=== PATIENT | female | born 1995 | race American Indian/Alaskan Native ===

== ENCOUNTER 2017-05-22 20:02 | Emergency (ER) | payer MEDICAID, OTHER ==
[2017-05-22 21:40] LABS: Basophils % (Auto) 0.5 % (0.0-1.8); Eosinophils % (Auto) 2.4 % (0.0-4.3); Hematocrit 39.6 % (30.3-42.9); Mean Corpuscular HGB Conc 33 % (30-34); Mean Corpuscular Hemoglobin 28 pg (28-32); Mean Corpuscular Volume 85 fl (79-97); Platelet Count 251 K/mm3 (140-440); Red Blood Count 4.64 M/mm3 (3.65-5.03); Red Cell Distribution Width 13.6 % (13.2-15.2)
[2017-05-22 22:13] LABS: Anion Gap 22 mmol/L; BUN/Creatinine Ratio 11.66; Blood Urea Nitrogen 7 mg/dL (7-17); Calcium 8.7 mg/dL (8.4-10.2); Carbon Dioxide 16 mmol/L (22-30); Chloride 103.5 mmol/L (98-107); Glucose 65 mg/dL (65-100); Sodium 137 mmol/L (137-145)
[2017-05-22 22:51] LABS: Bilirubin,Urine NEG (Negative); Blood,Urine MOD (Negative); Ketones,Urine NEG (Negative); Leukocyte Esterase,Urine NEG (Negative); Mucus,Urine 1+ /HPF; Nitrite,Urine NEG (Negative); Protein,Urine <15 mg/dL mg/dL (Negative); Urobilinogen,Urine < 2.0 mg/dL (<2.0)
--- NOTE | 2017-05-23 10:38 | XRay Report ---
ROUTINE CHEST, TWO VIEWS: HISTORY: chest pain. The trachea, heart, mediastinal contour, lung moreno and bony thorax are unremarkable. IMPRESSION: Unremarkable chest x-ray.
[2017-05-23 11:36] VITALS: BP 134/80
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
== END 2017-05-23 11:35 | disposition home or self-care (01) ==
LOC: ED 20:02
DX: K21.9 Gastro-esophageal reflux disease without esophagitis (principal); M54.5 Low back pain; G89.29 Other chronic pain
CPT/HCPCS: 36415; 71020; 80048; 81001; 82962; 84484; 84703; 85025; 93005; 93010

== ENCOUNTER 2017-12-17 16:36 | Emergency (ER) | payer SELFPAY ==
[2017-12-17 16:51] VITALS: BP 142/96
[2017-12-17 21:18] LABS: Basophils % (Auto) 0.3 % (0.0-1.8); Eosinophils # (Auto) 0.2 K/mm3 (0.0-0.4); Eosinophils % (Auto) 2.7 % (0.0-4.3); Hemoglobin 13.1 gm/dl (10.1-14.3); Lymphocytes # (Auto) 3.5 K/mm3 (1.2-5.4); Lymphocytes % (Auto) 46.1 % (13.4-35.0); Mean Corpuscular HGB Conc 32 % (30-34); Mean Corpuscular Hemoglobin 28 pg (28-32); Mean Corpuscular Volume 89 fl (79-97); Monocytes # (Auto) 0.5 K/mm3 (0.0-0.8); Monocytes % (Auto) 6.6 % (0.0-7.3); Platelet Count 249 K/mm3 (140-440); Red Blood Count 4.62 M/mm3 (3.65-5.03); Red Cell Distribution Width 13.9 % (13.2-15.2)
[2017-12-17] MEDS ORDERED: TYLENOL #3 PO ONE (21:23)
[2017-12-17 21:28] LABS: BUN/Creatinine Ratio 14; Blood Urea Nitrogen 7 mg/dL (7-17); Hemolysis Index 7
--- NOTE | 2017-12-17 21:30 | Emergency Department Report ---
HPI - General Chief Complaint: Weakness Time Seen by Provider: 12/17/17 21:00 - HPI HPI: The patient is a 22-year-old female presents for evaluation of headache. The patient reports headache and dizziness since 3 PM earlier today, approximately 6 hours prior to my evaluation. She states that her headache was insidious in onset, constant since onset, moderate in severity, pressure-like in quality, exacerbated with bright lights. Her dizziness and lightheadedness has been mild , exacerbated with position changes, and improved with sitting down and rest. She says that she has a history of episodes of dizziness and weakness at the being found to have low blood sugar. The patient denies fever, head injury, neck pain, neck stiffness, vision or hearing changes, smell or taste changes, paresthesias, facial drooping, slurred speech, seizure-like activity, urine or bowel incontinence or retention, or other focal neurological deficit. ED Past Medical Hx - Past Medical History Hx Diabetes: Yes (boarderline) - Social History Smoking Status: Never Smoker Substance Use Type: None - Medications Home Medications: Home Medications Medication Instructions Recorded Confirmed Last Taken Type Cyclobenzaprine HCl [Flexeril] 10 mg PO QHS #15 tablet 12/06/13 Unknown Rx HYDROcodone/ACETAMINOPHEN [[place] 1 each PO Q6HR #20 tablet 12/06/13 Unknown Rx 5/325 Tablet] Ibuprofen [Motrin] 600 mg PO Q8H PRN #60 tablet 12/06/13 Unknown Rx Ibuprofen [Motrin 600 MG tab] 600 mg PO Q8H PRN #20 tablet 05/23/17 Unknown Rx Butalb/Acetaminophen/Caffeine 1 - 2 cap PO Q6HR PRN #14 cap 12/17/17 Unknown Rx [Fioricet 50-300-40 mg CAP] ED Review of Systems ROS: Stated complaint: CHECK BLOOD SUGAR Other details as noted in HPI Constitutional: reports dizziness/lightheadedness denies: fever ENT: denies: throat or neck pain Respiratory: denies: cough, shortness of breath Cardiovascular: denies: chest pain Endocrine: denies unexplained weight loss or gain Gastrointestinal: denies: abdominal pain, nausea Genitourinary: denies: dysuria Musculoskeletal: denies: leg swelling Skin: denies: rash Neurological: reports headache Hematological/Lymphatic: denies: easy bleeding or easy bruising Psych: denies sadness or hopelessness Physical Exam - Physical Exam Vital Signs: Vital Signs 12/17/17 16:46 Temperature 98 F Pulse Rate 96 H Respiratory 18 Rate Blood Pressure 142/96 O2 Sat by Pulse 100 Oximetry Physical Exam: General: well-nourished, well-developed, no acute distress Head: Normocephalic, atraumatic Eyes: normal sclera ENT: Mucous membranes are pale and dry Neck: trachea midline, neck supple, No neck stiffness, no cervical adenopathy Respiratory: Breath sounds equal bilaterally, no wheezing, rales, or rhonchi Cardio: S1 and S2 present, no murmurs, rubs, gallops, capillary refill is delayed Abdomen: Normoactive bowel sounds, soft abdomen, no rigidity, no guarding or rebound tenderness Chest WALL/Back: No tenderness to palpation of the chest wall, no CVA tenderness with percussion Musc: No pitting edema Skin: No rash Neuro: alert oriented x4, normal cognition, speech normal, PERRL, EOM intact, no facial drooping, no uvula or tongue deviation on protrusion, no deficit with rotation of neck or shoulder shrug, no obvious gross motor deficit in the upper or lower extremities with flexion or extension at the shoulder, elbow, wrist, hip, knee, or ankle bilaterally, no obvious gross sensation deficit to crude touch or 2 pt discrimination, 2+ symmetric reflexes on DTR testing, no coordination deficit with [id number] or [id number] testing, Babinski downgoing, romberg negative, patient able to to ambulate without abnormal gait Psych: Normal affect ED Course Vital Signs 12/17/17 16:46 Temperature 98 F Pulse Rate 96 H Respiratory 18 Rate Blood Pressure 142/96 O2 Sat by Pulse 100 Oximetry ED Medical Decision Making - Lab Data Result diagrams: 12/17/17 21:07 - Medical Decision Making The patient was seen and examined by myself. The patient is placed on a diagnostic cardiac sonographer and continuous pulse ox. On initial evaluation, the patient was found to be in no distress. As there are no neuro deficits or other findings on examination concerning for acute intracranial disease process, and as the patient states that symptoms are consistent with previous headaches, a CAT scan of the head will not be obtained at this time. The patient is given IM dose of toradol for her pain. Lab was also reassuring including normal WBC, hemoglobin , hematocrit, renal function, blood sugar, and negative test. The patient was reevaluated and reported that their symptoms were markedly improved. The patient is stable for discharge with outpatient follow-up. The patient is given follow-up and return instructions. The patient expressed understanding and agreed with the plan. The patient is discharged in stable condition. Critical care attestation.: If time is entered above; I have spent that time in minutes in the direct care of this critically ill patient, excluding procedure time. ED Disposition Clinical Impression: Acute non intractable tension-type headache, Dehydration, mild, Weakness generalized Disposition: DC-01 TO HOME OR SELFCARE Is pt being admited?: No Does the pt Need Aspirin: No Condition: Stable Instructions: Acute Headache (ED), Weakness (ED) Referrals: PRIMARY CARE [Primary Care Provider] - 3-5 Days [facility] [Provider Group] - 3-5 Days Time of Disposition: 21:32
== END 2017-12-17 22:07 | disposition home or self-care (01) ==
LOC: ED 16:36
DX: E86.0 Dehydration (principal); R53.1 Weakness
CPT/HCPCS: 36415; 80048; 82962; 84703; 85025; 99284

== ENCOUNTER 2018-03-12 14:36 | Emergency (ER) | payer SELFPAY ==
[2018-03-12 16:14] LABS: Basophils % (Auto) 0.2 % (0.0-1.8); Eosinophils # (Auto) 0.1 K/mm3 (0.0-0.4); Eosinophils % (Auto) 0.9 % (0.0-4.3); Hematocrit 42.1 % (30.3-42.9); Hemoglobin 13.7 gm/dl (10.1-14.3); Lymphocytes # (Auto) 1.8 K/mm3 (1.2-5.4); Mean Corpuscular HGB Conc 32 % (30-34); Mean Corpuscular Hemoglobin 28 pg (28-32); Mean Corpuscular Volume 88 fl (79-97); Monocytes # (Auto) 0.5 K/mm3 (0.0-0.8); Monocytes % (Auto) 6.6 % (0.0-7.3); Platelet Count 280 K/mm3 (140-440); Red Blood Count 4.81 M/mm3 (3.65-5.03); Red Cell Distribution Width 14.4 % (13.2-15.2)
[2018-03-12 18:02] LABS: Bilirubin,Urine NEG (Negative); Blood,Urine LG (Negative); Color,Urine Yellow (Yellow); Mucus,Urine 2+ /HPF; Urobilinogen,Urine < 2.0 mg/dL (<2.0)
[2018-03-12 18:03] LABS: RBC,Urine > 182.0 /HPF (0.0-6.0)
--- NOTE | 2018-03-12 22:37 | Emergency Department Report ---
ED Female HPI - General Chief complaint: Vaginal Bleeding Stated complaint: POSS MISCARRIAGE Time Seen by Provider: 03/12/18 22:37 Source: patient Mode of arrival: Ambulatory Limitations: No Limitations - History of Present Illness Initial comments: This is a 22-year-old female here because she says she is having vaginal bleeding with unconfirmed . She said "I think I'm having a miscarriage ". She says she is having heavy vaginal bleeding and she goes to [facility]. Denies any nausea or vomiting. Denies any fever or chills. Poor that she is having pelvic cramping and her last menstrual. Was 01/27/2018. Crampiness 10 out of 10 and comes and goes. Denies any back pain. Denies any fever or chills. Nothing makes cramps better and nothing makes it worse. No medication taken for pain. MD Complaint: vaginal bleeding Onset/Timin -: days(s) Location: suprapubic Radiation: non-radiating Severity: severe Severity scale (0 -10): 10 Quality: cramping Consistency: intermittent Improves with: none Worsens with: none Are you Now?: Yes (patient thinks she is ) Last Menstrual Period: 01/27/18 EDC: 11/03/18 Associated Symptoms: vaginal bleeding, abdominal pain. denies: vaginal discharge, nausea/vomiting, fever/chills, headaches, loss of appetite, dysuria, hematuria, rash, seizure, shortness of breath, syncope, weakness - Related Data Sexually active: Yes Previous Rx's Medication Instructions Recorded Last Taken Type Cyclobenzaprine HCl [Flexeril] 10 mg PO QHS #15 tablet 12/06/13 Unknown Rx HYDROcodone/ACETAMINOPHEN [[place] 1 each PO Q6HR #20 tablet 12/06/13 Unknown Rx 5/325 Tablet] Ibuprofen [Motrin] 600 mg PO Q8H PRN #60 tablet 12/06/13 Unknown Rx Ibuprofen [Motrin 600 MG tab] 600 mg PO Q8H PRN #20 tablet 05/23/17 Unknown Rx Butalb/Acetaminophen/Caffeine 1 - 2 cap PO Q6HR PRN #14 cap 12/17/17 Unknown Rx [Fioricet 50-300-40 mg CAP] Naproxen [Naprosyn TAB] 500 mg PO Q12H PRN #12 tablet 03/12/18 Unknown Rx Nitrofurantoin [place]/M-Cryst 100 mg PO Q12HR 7 Days #14 capsule 03/12/18 Unknown Rx [Macrobid CAP] Allergies Allergy/AdvReac Type Severity Reaction Status Date / Time Sulfa (Sulfonamide Allergy Hives Verified 12/05/13 22:37 Antibiotics) ED Review of Systems ROS: Stated complaint: POSS MISCARRIAGE Other details as noted in HPI Constitutional: denies: chills, fever Eyes: denies: eye pain ENT: denies: ear pain, throat pain, congestion Respiratory: denies: cough, shortness of breath, SOB with exertion, SOB at rest , stridor, wheezing Cardiovascular: denies: chest pain, palpitations, dyspnea on exertion, edema, syncope Gastrointestinal: abdominal pain. denies: nausea, vomiting, diarrhea, constipation, hematemesis, melena, hematochezia Genitourinary: abnormal menses. denies: urgency, dysuria, frequency, hematuria , discharge, dyspareunia Musculoskeletal: denies: back pain, joint swelling, arthralgia, myalgia Skin: denies: rash, lesions Neurological: denies: headache, weakness ED Past Medical Hx - Past Medical History Previous Medical History?: Yes Hx Diabetes: Yes (boarderline) - Surgical History Past Surgical History?: No - Family History Family history: hypertension - Social History Smoking Status: Never Smoker Substance Use Type: None - Medications Home Medications: Home Medications Medication Instructions Recorded Confirmed Last Taken Type Cyclobenzaprine HCl [Flexeril] 10 mg PO QHS #15 tablet 12/06/13 Unknown Rx HYDROcodone/ACETAMINOPHEN [[place] 1 each PO Q6HR #20 tablet 12/06/13 Unknown Rx 5/325 Tablet] Ibuprofen [Motrin] 600 mg PO Q8H PRN #60 tablet 12/06/13 Unknown Rx Ibuprofen [Motrin 600 MG tab] 600 mg PO Q8H PRN #20 tablet 05/23/17 Unknown Rx Butalb/Acetaminophen/Caffeine 1 - 2 cap PO Q6HR PRN #14 cap 12/17/17 Unknown Rx [Fioricet 50-300-40 mg CAP] Naproxen [Naprosyn TAB] 500 mg PO Q12H PRN #12 tablet 03/12/18 Unknown Rx Nitrofurantoin [place]/M-Cryst 100 mg PO Q12HR 7 Days #14 capsule 03/12/18 Unknown Rx [Macrobid CAP] ED Physical Exam - General Limitations: No Limitations General appearance: alert, in no apparent distress - Head Head exam: Present: atraumatic, normocephalic, normal inspection - Eye Eye exam: Present: normal appearance, PERRL, EOMI Pupils: Present: normal accommodation - ENT ENT exam: Present: normal exam, normal orophraynx, mucous membranes moist, TM's normal bilaterally, normal external ear exam - Neck Neck exam: Present: normal inspection, full ROM, other (no C-spine tenderness). Absent: tenderness, lymphadenopathy - Respiratory Respiratory exam: Present: normal lung sounds bilaterally. Absent: respiratory distress, wheezes, rales, rhonchi, stridor, chest wall tenderness, accessory muscle use, decreased breath sounds, prolonged expiratory - Cardiovascular Cardiovascular Exam: Present: regular rate, normal rhythm, normal heart sounds. Absent: systolic murmur, diastolic murmur - GI/Abdominal GI/Abdominal exam: Present: soft, normal bowel sounds. Absent: distended, tenderness, guarding, rebound, rigid, organomegaly, mass, bruit, pulsatile mass , hernia - Extremities Exam Extremities exam: Present: normal inspection, full ROM, normal capillary refill , other (no clubbing, cyanosis or edema. +2 pulses to all extremities and no neurovascular compromise). Absent: tenderness, pedal edema, joint swelling, calf tenderness - Back Exam Back exam: Present: normal inspection, full ROM, other (ambulates without any difficulties). Absent: tenderness, CVA tenderness (R), CVA tenderness (L), muscle spasm, paraspinal tenderness, vertebral tenderness, rash noted - Neurological Exam Neurological exam: Present: alert, oriented X3, normal gait, reflexes normal. Absent: motor sensory deficit - Psychiatric Psychiatric exam: Present: normal affect, normal mood - Skin Skin exam: Present: warm, dry, intact, normal color. Absent: rash ED Course Vital Signs 03/12/18 03/12/18 15:26 23:22 Temperature 98.5 F 98.4 F Pulse Rate 85 82 Respiratory 20 18 Rate Blood Pressure 150/103 Blood Pressure 140/82 [Left] O2 Sat by Pulse 99 98 Oximetry Vital Signs 03/12/18 03/12/18 15:26 23:22 Temperature 98.5 F 98.4 F Pulse Rate 85 82 Respiratory 20 18 Rate Blood Pressure 150/103 Blood Pressure 140/82 [Left] O2 Sat by Pulse 99 98 Oximetry - Reevaluation(s) Reevaluation #1: 03/12/18 23:23 Patient received Motrin 800 mg by mouth in emergency room for abdominal pain. She is not having as much cramping as she was per patient when she first came in. Patient is tolerating fluids without any difficulties. ED Medical Decision Making - Lab Data Result diagrams: 03/12/18 15:36 Lab Results 03/12/18 03/12/18 03/12/18 Range/Units 15:36 15:36 15:36 WBC 7.3 (4.5-11.0) K/mm3 RBC 4.81 (3.65-5.03) M/mm3 Hgb 13.7 (10.1-14.3) gm/dl Hct 42.1 (30.3-42.9) % MCV 88 (79-97) fl MCH 28 (28-32) pg MCHC 32 (30-34) % RDW 14.4 (13.2-15.2) % Plt Count 280 (140-440) K/mm3 Lymph % (Auto) 25.0 (13.4-35.0) % [place] % (Auto) 6.6 (0.0-7.3) % Eos % (Auto) 0.9 (0.0-4.3) % Baso % (Auto) 0.2 (0.0-1.8) % Lymph # 1.8 (1.2-5.4) K/mm3 [place] # 0.5 (0.0-0.8) K/mm3 Eos # 0.1 (0.0-0.4) K/mm3 Baso # 0.0 (0.0-0.1) K/mm3 Seg Neutrophils % 67.3 (40.0-70.0) % Seg Neutrophils # 4.9 (1.8-7.7) K/mm3 HCG, Quant < 2 (0-4) mIU/mL Urine Color (Yellow) Urine Turbidity (Clear) Urine pH (5.0-7.0) Ur Specific [place] (1.003-1.030) Urine Protein (Negative) mg/dL Urine Glucose (UA) (Negative) mg/dL Urine Ketones (Negative) mg/dL Urine Blood (Negative) Urine Nitrite (Negative) Urine Bilirubin (Negative) Urine Urobilinogen (<2.0) mg/dL Ur Leukocyte Esterase (Negative) Urine WBC (Auto) (0.0-6.0) /HPF Urine RBC (Auto) (0.0-6.0) /HPF U Epithel Cells (Auto) (0-13.0) /HPF Urine Mucus /HPF Blood Type O POSITIVE Antibody Screen Negative 03/12/18 Range/Units 17:34 WBC (4.5-11.0) K/mm3 RBC (3.65-5.03) M/mm3 Hgb (10.1-14.3) gm/dl Hct (30.3-42.9) % MCV (79-97) fl MCH (28-32) pg MCHC (30-34) % RDW (13.2-15.2) % Plt Count (140-440) K/mm3 Lymph % (Auto) (13.4-35.0) % [place] % (Auto) (0.0-7.3) % Eos % (Auto) (0.0-4.3) % Baso % (Auto) (0.0-1.8) % Lymph # (1.2-5.4) K/mm3 [place] # (0.0-0.8) K/mm3 Eos # (0.0-0.4) K/mm3 Baso # (0.0-0.1) K/mm3 Seg Neutrophils % (40.0-70.0) % Seg Neutrophils # (1.8-7.7) K/mm3 HCG, Quant (0-4) mIU/mL Urine Color Yellow (Yellow) Urine Turbidity Clear (Clear) Urine pH 6.0 (5.0-7.0) Ur Specific [place] 1.024 (1.003-1.030) Urine Protein 100 mg/dl (Negative) mg/dL Urine Glucose (UA) Neg (Negative) mg/dL Urine Ketones Neg (Negative) mg/dL Urine Blood Lg (Negative) Urine Nitrite Neg (Negative) Urine Bilirubin Neg (Negative) Urine Urobilinogen < 2.0 (<2.0) mg/dL Ur Leukocyte Esterase Tr (Negative) Urine WBC (Auto) 7.0 H (0.0-6.0) /HPF Urine RBC (Auto) > 182.0 (0.0-6.0) /HPF U Epithel Cells (Auto) 3.0 (0-13.0) /HPF Urine Mucus 2+ /HPF Blood Type Antibody Screen Urine culture sent - Medical Decision Making 22-year-old female here reports that she's been having vaginal bleeding and an unconfirmed and she thinks that she is having a miscarriage. She says she hasn't had a period since 01/27/2018 and now she started having heavy bleeding a couple days ago. She is here to be checked. She was reports she is having abdominal cramping 10 on the 10 that comes and goes without taking any medication. Denies any nausea or vomiting. Denies any urinary burning frequency or urgency. Denies any vaginal discharge or concern for STDs. Patient was seen and examined by myself and she is stable. Her blood pressure was elevated in triage but is is stable now. Vital signs are stable she is afebrile. Patient's strength in when eating well. She had CBC done which was normal, quantitative is less than 2 which means the patient is not , urinalysis reveals a patient with large amount of blood, 100 protein, trace leukocyte Estrace and 7 white blood cells without any contamination. Urine culture sent. I discussed the patient that this could be that she is on her menses that is late and that she has a urinary tract infection. I discussed with her that she needs to follow-up with [facility] for follow- up of normal menses. I discussed with her that her test is negative. Patient was understanding. A/P 1: Acute cystitis with hematuria-plan to be discharged home on Macrobid. 2: Normal menses: Patient referred back to [facility] for evaluation. 3: Abdominal pain: Resolved since Motrin. plan to send home on naproxen Patient education medication, diagnosis, labs, treatment plan and need to follow -up. She voiced understanding. Discussion for naproxen and Macrobid Pt Discharged home in stable condition. Vital signs are stable she is afebrile and to follow-up with [facility] in 2 days for abnormal menses and urinary tract infection. Patient is nontoxic and she voiced understanding of discharge plan. - Differential Diagnosis , dysmenorrhea, ectopic , missed , UTI Critical care attestation.: If time is entered above; I have spent that time in minutes in the direct care of this critically ill patient, excluding procedure time. ED Disposition Clinical Impression: Vaginal bleeding, Abnormal menstrual cycle, Acute cystitis with hematuria, test negative Abdominal pain Qualifiers: Abdominal location: lower abdomen, unspecified Qualified Code(s): R10.30 - Lower abdominal pain, unspecified Disposition: TO HOME OR SELFCARE Is pt being admited?: No Does the pt Need Aspirin: No Condition: Stable Instructions: Dysmenorrhea (ED), Urinary Tract Infection in Women (ED), Abdominal Pain (ED) Additional Instructions: Yourpregnancy hormone test is less than 2 that means you were never Please follow up with [facility] for abnormal menstruation and painful menstrual cycle Take naproxen for pain Take Macrobid for urinary tract infection InCrease U fluid intake Prescriptions: Naproxen [Naprosyn TAB] 500 mg PO Q12H PRN #12 tablet PRN Reason: abdominal cramping Nitrofurantoin [place]/M-Cryst [Macrobid CAP] 100 mg PO Q12HR 7 Days #14 capsule Referrals: [facility] [Provider Group] - 2-3 Days PRIMARY CARE,MD [Primary Care Provider] - 2-3 Days Forms: Work/School Release Form(ED)
[2018-03-12] MEDS ORDERED: MOTRIN PO ONE (23:18)
[2018-03-12 23:23] VITALS: BP 140/82
== END 2018-03-12 23:40 | disposition home or self-care (01) ==
LOC: ED 14:36
DX: N30.01 Acute cystitis with hematuria (principal); N93.9 Abnormal uterine and vaginal bleeding, unspecified; R10.30 Lower abdominal pain, unspecified; E11.9 Type 2 diabetes mellitus without complications; Z88.2 Allergy status to sulfonamides
CPT/HCPCS: 36415; 81001; 84702; 85025; 86850; 86900; 86901; 99283